=== PATIENT | female | born 1990 | race Caucasian/White ===

== ENCOUNTER → 2017-02-27 | Outpatient (CLI) | payer BC ==
[~2017-02-27] MED LIST: AMOXIL500 MG PO; DONNATAL1 CA1 PO; FLEXERIL10 MG PO; IBU600 MG PO; MOTRIN800 MG PO; NKHM PO; ZANTAC150 MG PO; ZYRTEC10 MG PO
== END | disposition home or self-care (01) ==
LOC: US 07:11
DX: N64.4 Mastodynia (principal)

== ENCOUNTER 2018-07-03 12:08 | Emergency (ER) | payer BC ==
[~2018-07-03] VITALS: Ht 170.1 cm; Wt 143.8 kg
[2018-07-03 13:07] LABS: BASO # 0.1 10*3/uL (0.0-0.1); BASO % 0.5 % (0.0-1.0); EOS # 0.1 10*3/uL (0.0-0.4); EOS % 0.5 % (1.0-4.0); HEMATOCRIT 41.6 % (37.0-47.0); HEMOGLOBIN 13.6 g/dl (12.0-16.0); LYMPH # 1.9 10*3/uL (1.3-4.4); LYMPH % 19.3 % (27.0-41.0); MEAN CELL VOLUME 86.7 fl (81.0-99.0); MEAN CORPUSCULAR HGB 28.3 pg (27.0-31.0); MEAN CORPUSCULAR HGB CONC 32.7 g/dl (33.0-37.0); MONO # 0.5 10*3/uL (0.1-1.0); MONO % 4.9 % (3.0-9.0); NEUT # 7.5 10*3/uL (2.3-7.9); NEUT % 74.5 % (47.0-73.0); PLATELET COUNT AUTOMATED 326 10*3/uL (130-400); RED CELL DISTRI WIDTH 13.2 % (0-14.5)
[2018-07-03 13:31] LABS: ALBUMIN 3.1 gm/dl (3.1-4.5); ALKALINE PHOSPHATASE 100 U/L (45-117); BUN 9 mg/dl (7-24); CHLORIDE 107 mmol/L (98-107); CREATININE 0.91 mg/dL (0.55-1.02); LIPASE 199 U/L (73-393); POTASSIUM 4.2 mmol/L (3.5-5.1); SGOT/AST 13 IU/L (3-35); SGPT/ALT 22 U/L (12-78); SODIUM 139 mmol/L (136-145); TOTAL PROTEIN 8.1 gm/dL (6.4-8.2)
[2018-07-03 13:32] LABS: BILIRUBIN NEGATIVE (NEGATIVE); BLOOD 3+ (NEGATIVE); CLARITY SL CLOUDY (CLEAR); COLOR YELLOW (YELLOW); GLUCOSE NEGATIVE (NEGATIVE); KETONE NEGATIVE (NEGATIVE); LEUKO ESTERASE 1+ (NEGATIVE); NITRITE NEGATIVE (NEGATIVE); SPECIFIC GRAVITY 1.015 (1.005-1.030); UROBILINOGEN 0.2 E.U./dl (0.2-1.0)
[2018-07-03 13:52] LABS: BACTERIA 3+; RBC 51-100 rbc/hpf (0-2); WBC 41-50 wbc/hpf (0-5)
[2018-07-03] MEDS ORDERED: ZANTAC 150150 MG PO (16:02)
[2018-07-03] MEDS ORDERED: SUNMARK OMEPRAZ20 M1 PO (16:02)
[2018-07-03] MEDS ORDERED: ZOFRAN4 MG PO (16:02)
[2018-07-03] MEDS ORDERED: CARAFATE1 G1 PO (16:02)
== END 2018-07-03 16:11 | disposition home or self-care (01) ==
LOC: ED 12:08
PROVIDERS: Nurse Practitioner Family
DX: R10.13 Epigastric pain (principal); M54.6 Pain in thoracic spine; R03.0 Elevated blood-pressure reading, without diagnosis of hypertension; R11.0 Nausea; Z79.2 Long term (current) use of antibiotics; Z79.899 Other long term (current) drug therapy

== ENCOUNTER 2019-01-15 19:20 | Emergency (ER) | payer BC ==
[~2019-01-15] VITALS: Ht 170.1 cm; Wt 140.6 kg
[~2019-01-15 19:20] MED LIST changes: +CARAFATE1 G1 PO; +SUNMARK OMEPRAZ20 M1 PO; +ZANTAC 150150 MG PO; +ZOFRAN4 MG PO
[2019-01-16 01:27] LABS: BASO % 0.1 % (0.0-1.0); EOS % 0.1 % (1.0-4.0); HEMATOCRIT 39.6 % (37.0-47.0); HEMOGLOBIN 12.6 g/dl (12.0-16.0); LYMPH # 1.8 10*3/uL (1.3-4.4); LYMPH % 11.6 % (27.0-41.0); MEAN CELL VOLUME 89.2 fl (81.0-99.0); MEAN CORPUSCULAR HGB 28.4 pg (27.0-31.0); MEAN CORPUSCULAR HGB CONC 31.8 g/dl (33.0-37.0); MEAN PLATELET VOLUME 9.9 fl (9.6-12.3); MONO # 0.8 10*3/uL (0.1-1.0); MONO % 5.1 % (3.0-9.0); NEUT # 12.5 10*3/uL (2.3-7.9); NEUT % 82.8 % (47.0-73.0); PLATELET COUNT AUTOMATED 282 10*3/uL (130-400); RED BLOOD COUNT 4.44 10*6/uL (4.10-5.10); RED CELL DISTRI WIDTH 13.9 % (0-14.5); WHITE BLOOD COUNT 15.1 10*3/uL (4.8-10.8)
[2019-01-16 01:42] LABS: ACT PARTIAL THROMBO TIME 22.2 SECONDS (20.0-32.1); INTERNATIONAL NORM RATIO 0.9 (2.0-3.5)
[2019-01-16 01:43] LABS: BUN 15 mg/dl (7-24); CHLORIDE 108 mmol/L (98-107); CREATININE 0.94 mg/dL (0.55-1.02); POTASSIUM 4.1 mmol/L (3.5-5.1); SODIUM 139 mmol/L (136-145)
== END 2019-01-16 02:28 | disposition short-term general hospital (02) ==
LOC: ED 19:20
PROVIDERS: Emergency Medicine Emergency Medical Services
DX: S82.852A Displaced trimalleolar fracture of left lower leg, initial encounter for closed fracture (principal); R79.1 Abnormal coagulation profile; W17.2XXA Fall into hole, initial encounter; Y93.89 Activity, other specified; Y92.89 Other specified places as the place of occurrence of the external cause; Y99.8 Other external cause status

== ENCOUNTER → 2019-11-14 | Outpatient (CLI) | payer BC | END | disposition home or self-care (01) | LOC: COVID19 08:19 | DX: U07.1 COVID-19 (principal) ==

== ENCOUNTER 2019-11-20 20:41 | Inpatient (IN) | payer BC ==
[~2019-11-20] VITALS: Ht 162.5 cm; Wt 148.1 kg
[2019-11-20 20:54] VITALS: BP 127/66
[2019-11-20 22:33] LABS: BASO % 0.1 % (0.0-1.0); HEMATOCRIT 40.3 % (37.0-47.0); LYMPH % 11.1 % (27.0-41.0); MEAN CELL VOLUME 82.1 fl (81.0-99.0); MEAN CORPUSCULAR HGB 26.5 pg (27.0-31.0); MEAN CORPUSCULAR HGB CONC 32.3 g/dl (33.0-37.0); MEAN PLATELET VOLUME 10.3 fl (9.6-12.3); MONO # 0.3 10*3/uL (0.1-1.0); MONO % 3.2 % (3.0-9.0); NEUT # 7.7 10*3/uL (2.3-7.9); NEUT % 85.2 % (47.0-73.0); PLATELET COUNT AUTOMATED 222 10*3/uL (130-400); RED BLOOD COUNT 4.91 10*6/uL (4.10-5.10)
[2019-11-20 22:39] VITALS: BP 110/64
[2019-11-20 22:49] LABS: ALBUMIN 2.9 gm/dl (3.1-4.5); ALKALINE PHOSPHATASE 77 U/L (45-117); BUN 6 mg/dl (7-24); CHLORIDE 101 mmol/L (98-107); POTASSIUM 3.5 mmol/L (3.5-5.1); SGOT/AST 38 IU/L (3-35); SGPT/ALT 36 U/L (12-78); SODIUM 133 mmol/L (136-145); TOTAL PROTEIN 7.9 gm/dL (6.4-8.2)
[2019-11-20 23:40] VITALS: BP 100/77
--- NOTE | 2019-11-20 23:40 | NUR ---
A 29, admitted to , under the services of GEE Jennings DO with a diagnosis of HYPOXIA, PNEUMONIA, COVID +. Chief complaint is TESTED + COVID 11/16/19. SOB THIS EVENING. Patient arrived via wheel chair from ER. Monitor applied. Initial assessment completed. Vital signs taken and recorded. GEE JENNINGS DO / DR LEE notified of admission to the unit. Orders received. See assessment for past medical history, medications and allergies. Patient and/or family oriented to unit. [facility] visitation policy reviewed. Clothing/patient valuable form completed. REBECA LINARES
--- NOTE | 2019-11-20 23:53 | NUR ---
CONSULT CALLED TO DR REZA'S ANSWERING SERVICE
[2019-11-21 00:06] LABS: LDH 443 U/L (84-246)
[2019-11-21 00:09] LABS: TROPONIN I < 0.015 ng/ml (<0.045)
[2019-11-21] MEDS ORDERED: PROPRANOLOL ER80 MG PO (00:56)
[2019-11-21 01:00] LABS: ARTERIAL BLOOD GAS PH 7.466 (7.35-7.45)
--- NOTE | 2019-11-21 01:15 | NUR ---
DR JACOBS CONTACTED REGARDING CONSULT. ABG'S AND PULSE OX REVIEWED
--- NOTE | 2019-11-21 04:00 | NUR ---
SLEEPING. NO ACUTE DISTRESS NOTED. O2 IN USE. CALL LIGHT WITHIN REACH
--- NOTE | 2019-11-21 06:00 | NUR ---
SLEPT SINCE ARRIVING TO FLOOR. NO ACUTE DISTRESS NOTED. RESPIRATIONS EASY. O2 IN USE. CALL LIGHT WITHIN REACH. NO VOICED COMPLAINTS
[2019-11-21 06:37] LABS: BASO % 0.1 % (0.0-1.0); HEMATOCRIT 36.7 % (37.0-47.0); LYMPH # 1.1 10*3/uL (1.3-4.4); LYMPH % 14.3 % (27.0-41.0); MEAN CELL VOLUME 82.8 fl (81.0-99.0); MEAN CORPUSCULAR HGB 26.9 pg (27.0-31.0); MEAN CORPUSCULAR HGB CONC 32.4 g/dl (33.0-37.0); MEAN PLATELET VOLUME 10.3 fl (9.6-12.3); MONO # 0.3 10*3/uL (0.1-1.0); MONO % 3.7 % (3.0-9.0); NEUT % 81.1 % (47.0-73.0); PLATELET COUNT AUTOMATED 188 10*3/uL (130-400); RED BLOOD COUNT 4.43 10*6/uL (4.10-5.10); RED CELL DISTRI WIDTH 14.1 % (0-14.5); WHITE BLOOD COUNT 7.4 10*3/uL (4.8-10.8)
[2019-11-21 07:06] LABS: ALBUMIN 2.5 gm/dl (3.1-4.5); ALKALINE PHOSPHATASE 66 U/L (45-117); BUN 7 mg/dl (7-24); CHLORIDE 102 mmol/L (98-107); CPK 40 U/L (26-192); CREATININE 0.93 mg/dL (0.55-1.02); POTASSIUM 3.4 mmol/L (3.5-5.1); SGOT/AST 32 IU/L (3-35); SGPT/ALT 33 U/L (12-78); SODIUM 134 mmol/L (136-145); TOTAL PROTEIN 7.2 gm/dL (6.4-8.2)
--- NOTE | 2019-11-21 07:30 | NUR ---
PT RESTING IN BED. VOICES NO CONCERNS AT THIS TIME. RESPS EASY AND NON LABORED. NO S/S OF DISTRESS NOTED. OXYGEN INTACT. VSS. WHITE BOARD UPDATED. POC DISCUSSED W PT. DENIES SOB. TRACE EDEMA. OBESE.
[2019-11-21 08:00] VITALS: BP 122/68
[2019-11-21 10:38] LABS: ABG BASE EXCESS 1.5 mmol/L (-2.0-2.0); ARTERIAL BLOOD GAS PH 7.46 (7.35-7.45)
--- NOTE | 2019-11-21 10:50 | NUR ---
PER DR JACOBS TITRATE OXYGEN TO MAINTAIN SPO2 >92%
--- NOTE | 2019-11-21 10:57 | NUR ---
SPOKE WITH DR JACOBS ON PHONE AND POST ABGS HE WANTS TO INCREASE THE 5L. RN AWARE AND WILL INCREASE TO 8L WHEN SHE GOES INTO THE ROOM.
[2019-11-21 12:00] VITALS: BP 124/76
[2019-11-21 16:00] VITALS: BP 107/68
--- NOTE | 2019-11-21 16:13 | NUR ---
INTO TO CHECK ON PT. SPO2 IN THE 80'S ON 5L HFNC. TITRATED TO 10L HFNC. SPO2 93%. RESPIRATORY PLACED CALL TO DR JACOBS. PT DIAPHORETIC AT THIS TIME.
--- NOTE | 2019-11-21 16:20 | NUR ---
SPOKE WITH REYNALDO ON THE PHONE AND HE WOULD LIKE THE PT TO BE MOVED, AND ALSO PLACED ON BIPAP. AWAITING SETTINGS AT THIS TIME UNTIL PT GETS PLACED INTO THE NEW ROOM. RN WAS ALSO NOTIFIED OF THE CHANGES.
--- NOTE | 2019-11-21 17:00 | NUR ---
PT RESTING IN PRONED POSITION. RESP EASY. PT ON 10 LITERS HIGHFLO NASAL CANNULA. EDUCATED PT ON BED TRANSFER AND UPCOMING PLAN OF CARE. PT VERBALIZED UNDERSTANDING.
--- NOTE | 2019-11-21 18:19 | NUR ---
PT EATING DINNER AND TALKING ON HER PHONE. PT DENIES COMPLAINTS AT THIS TIME.
--- NOTE | 2019-11-21 18:30 | NUR ---
ASKED RESP. THERAPY TO DRAW ABG'S NOW INSTEAD OF WAITING UNTIL ROOM CHANGE. THEY STATED THEY WILL BE UP SHORTLY.
--- NOTE | 2019-11-21 18:58 | NUR ---
MAURI MORSE DRAWN BY RESP. THERAPY.
[2019-11-21 19:09] LABS: ABG BASE EXCESS -1.1 mmol/L (-2.0-2.0); ARTERIAL BLOOD GAS PH 7.411 (7.35-7.45)
[2019-11-21 20:00] VITALS: BP 117/85
--- NOTE | 2019-11-21 20:01 | NUR ---
DR ERZA CALLED AND NOTIFIED ON UPDATED STATUS, ORDERS RECEIVED. PATIENT CURRENTLY ON BIPAP AND STABLE.
--- NOTE | 2019-11-21 20:30 | NUR ---
Pt placed on BiPap 14/10 and FiO2 50%. Alarms on and audible. SpO2 94% ABG in 2 hours.
--- NOTE | 2019-11-21 23:00 | NUR ---
Pt still resting on BiPap and doing great. ABG was sent and encouraged pt to wear the BiPap all night and to self-prone in the bed.
[2019-11-21 23:22] LABS: ABG BASE EXCESS -0.5 mmol/L (-2.0-2.0); ARTERIAL BLOOD GAS PH 7.411 (7.35-7.45)
[2019-11-22] VITALS: BP 98/48
[2019-11-22 04:00] VITALS: BP 122/71
--- NOTE | 2019-11-22 04:33 | NUR ---
PAIENT HAS SLEPT WITHOUT ANY ISSUES PATIENT HAS LEFT BIPAP ON ALL NIGHT OTHER THAN FOR A DRINK. PATIENT IS 93-98% ON BIPAP PATIENT HAS SLEPT ON HER RIGHT SIDE ALL NIGHT.
[2019-11-22 06:34] LABS: HEMATOCRIT 39.9 % (37.0-47.0); MEAN CELL VOLUME 84.4 fl (81.0-99.0); MEAN CORPUSCULAR HGB 26.8 pg (27.0-31.0); MEAN CORPUSCULAR HGB CONC 31.8 g/dl (33.0-37.0); MEAN PLATELET VOLUME 10.7 fl (9.6-12.3); PLATELET COUNT AUTOMATED 240 10*3/uL (130-400); RED BLOOD COUNT 4.73 10*6/uL (4.10-5.10); RED CELL DISTRI WIDTH 14.2 % (0-14.5); WHITE BLOOD COUNT 2.4 10*3/uL (4.8-10.8)
[2019-11-22 06:43] LABS: ALBUMIN 2.7 gm/dl (3.1-4.5); BUN 11 mg/dl (7-24); CHLORIDE 106 mmol/L (98-107); CREATININE 0.96 mg/dL (0.55-1.02); SGOT/AST 47 IU/L (3-35); SODIUM 138 mmol/L (136-145); TOTAL PROTEIN 7.7 gm/dL (6.4-8.2)
[2019-11-22 06:50] LABS: BASOPHILS 1 % (0-1); PLATELET SUFFICIENCY NORMAL (NORMAL); POLYCHROMASIA SLIGHT; TOTAL CELLS COUNTED 100 #CELLS
[2019-11-22 06:54] LABS: ALKALINE PHOSPHATASE 74 U/L (45-117); CPK 30 U/L (26-192); LDH 445 U/L (84-246); SGPT/ALT 50 U/L (12-78)
[2019-11-22 07:10] LABS: POTASSIUM 4.5 mmol/L (3.5-5.1)
[2019-11-22 08:00] VITALS: BP 134/66
[2019-11-22 08:47] LABS: ABG BASE EXCESS 0.2 mmol/L (-2.0-2.0); ARTERIAL BLOOD GAS PH 7.422 (7.35-7.45)
--- NOTE | 2019-11-22 08:48 | NUR ---
0815 Bi-Pap off for breakfast ordering.
--- NOTE | 2019-11-22 08:48 | NUR ---
RT here for ABG
--- NOTE | 2019-11-22 09:00 | NUR ---
case management spoke to patient via phone, she states she will return home when discharged and denies any home needs at this time
[2019-11-22 12:00] VITALS: BP 132/64; BP 135/73
--- NOTE | 2019-11-22 12:14 | NUR ---
Geographic Information Systems Manager in to talk to patient. Patient states lives at home with . There are no steps in the home. Physician: arnaldo Pharmacy: [facility]: none Patient's level of ADLs: INDEPENDENT Patient has working utilities: all working DME: none Follow-up physician's appointment after d/c: will be made by hospitalist nurse director upon discharge Does patient want to access PORTAL?: no Discharge plan discussed with patient, she lives at home with , she is independent in adls and ambulation, works, drives, she states she will return home when discharged and denies any home needs. FRANCHESCA CONCEPCION
--- NOTE | 2019-11-22 12:33 | NUR ---
Aurelio Hendrickson and Xavier in to evaulate. Orders recieved. A-line placed to RR per Albert Romero CRNA w/o difficulty.
[2019-11-22 12:52] LABS: ABG BASE EXCESS 0.4 mmol/L (-2.0-2.0); ARTERIAL BLOOD GAS PH 7.421 (7.35-7.45)
[2019-11-22 16:00] VITALS: BP 120/61; BP 124/62
[2019-11-22 17:15] LABS: ABG BASE EXCESS 0.7 mmol/L (-2.0-2.0); ARTERIAL BLOOD GAS PH 7.435 (7.35-7.45)
[2019-11-22 20:00] VITALS: BP 149/76
--- NOTE | 2019-11-22 21:13 | NUR ---
RN IN TO SEE PATIENT, PATIENT HAS CALLED OUT, WHEN RN ENTERED ROOM, PATIENT HAS BIPAP OFF AND NO OXYGEN ON, PULSE OXIMETER WAS ALSO OFF. OXYGEN WAS REAPPLIED AND PULSE OXIMETER WWS REAPPLIED. PULSE OX READING WAS 88%. PATIENT VISIBALLY UPSET AND STATES "IM NOT GOING TO SIT HERE FOR TEN MINUTES WITH SNOT ALL OVER MY FACE" RN EXPLAINED TO PATIENT THAT I WAS IN ANOTHER ISOLATION ROOM AND THAT I CAME INTO HER ROOM SOON POSSIBLE. RN ALSO EXPLAINED TO PATIENT TO NOT REMOVE BIPAP UNLESS RN OR RESPIRATORY IS IN WITH HER. PATIENT VERBALIZED UNDERSTANDING. PATIENT WAS ASSISTED TO THE BATHROOM AT THIS TIME WELL. PRIOR TO EXITING THE PATIENT ROOM, BIPAP WAS AGAIN PLACED ONTO PATIENT, SHE APPEARS TO BE TOLERATING WELL. AND DENIES ANY NEEDS AT THIS TIME
[2019-11-22 21:58] LABS: ABG BASE EXCESS -0.6 mmol/L (-2.0-2.0); ARTERIAL BLOOD GAS PH 7.423 (7.35-7.45)
--- NOTE | 2019-11-22 22:07 | NUR ---
PATIENT MOTHERS CALLED AND WAS UPDATED ON PATIENT CONDITION
[2019-11-22 22:41] LABS: ABG BASE EXCESS 0.4 mmol/L (-2.0-2.0); ARTERIAL BLOOD GAS PH 7.459 (7.35-7.45)
--- NOTE | 2019-11-22 22:53 | NUR ---
ABG RESULTS CALLED TO DR JACOBS, NO CHANGES TO BIPAP AT THIS TIME.
[2019-11-23] VITALS: BP 125/63
[2019-11-23 04:00] VITALS: BP 128/84
--- NOTE | 2019-11-23 04:55 | NUR ---
AM LABS DRAWN AT THIS TIME. PATIENT TOLERATED WELL. CONTINUES TO WEAR BIPAP, IS TOLERATING BIPAP WELL.
[2019-11-23 05:29] LABS: ALBUMIN 2.6 gm/dl (3.1-4.5); ALKALINE PHOSPHATASE 64 U/L (45-117); BUN 15 mg/dl (7-24); CHLORIDE 108 mmol/L (98-107); CREATININE 0.77 mg/dL (0.55-1.02); LDH 328 U/L (84-246); POTASSIUM 4.1 mmol/L (3.5-5.1); SGOT/AST 36 IU/L (3-35); SGPT/ALT 50 U/L (12-78); SODIUM 141 mmol/L (136-145); TOTAL PROTEIN 7.1 gm/dL (6.4-8.2)
[2019-11-23 05:35] LABS: CPK 16 U/L (26-192)
[2019-11-23 05:44] LABS: HEMATOCRIT 38.1 % (37.0-47.0); MEAN CELL VOLUME 83.6 fl (81.0-99.0); MEAN CORPUSCULAR HGB 26.8 pg (27.0-31.0); MEAN PLATELET VOLUME 10.6 fl (9.6-12.3); PLATELET COUNT AUTOMATED 300 10*3/uL (130-400); RED BLOOD COUNT 4.56 10*6/uL (4.10-5.10); RED CELL DISTRI WIDTH 14.2 % (0-14.5); WHITE BLOOD COUNT 5.2 10*3/uL (4.8-10.8)
[2019-11-23 06:51] LABS: ATYPICAL LYMPHS 1 % (0-0); OVALOCYTES FEW; POLYCHROMASIA SLIGHT; TOTAL CELLS COUNTED 100 #CELLS
[2019-11-23 06:52] LABS: PLATELET SUFFICIENCY NORMAL (NORMAL)
--- NOTE | 2019-11-23 06:58 | NUR ---
PATIENT REMAINS ASLEEP, WEARING BIPAP AND TOLERATING WELL. HAS WORE THE BIPAP FOR MOST OF THE NIGHT
[2019-11-23 07:41] LABS: ABG BASE EXCESS 1.5 mmol/L (-2.0-2.0); ARTERIAL BLOOD GAS PH 7.397 (7.35-7.45)
[2019-11-23 08:00] VITALS: BP 132/74
--- NOTE | 2019-11-23 08:30 | NUR ---
PT RESTING. VSS. PT DENIES COMPLAINTS. NO ACUTE DISTRESS NOTED.
--- NOTE | 2019-11-23 10:00 | NUR ---
DR JACOBS IN TO SEE PT. UPDATE IM ON PT'S CONDITION.
--- NOTE | 2019-11-23 10:40 | NUR ---
PATIENT PLACED ON BI-PAP 02/05, 45%. PULSE OX 99%.
[2019-11-23 10:42] LABS: ABG BASE EXCESS 1.4 mmol/L (-2.0-2.0); ARTERIAL BLOOD GAS PH 7.429 (7.35-7.45)
[2019-11-23 11:52] VITALS: BP 137/80
--- NOTE | 2019-11-23 12:36 | NUR ---
DR WATKINS IN TO SEE PT.
[2019-11-23 16:00] VITALS: BP 126/68
--- NOTE | 2019-11-23 18:00 | NUR ---
PT C/O GI UPSET. SHE STATED SHE TAKES "OTC PRILOSEC SOMETIMES AT HOME." SHE STATED THAT ONE OF THE DOCTORS WERE IN [place] AND STATED THEY WOULD ORDER IT FOR HER. I NOTIFIED DR BARNEY AND SHE STATED SHE WOULD PLACE THE ORDER.
[2019-11-23 20:00] VITALS: BP 141/81
[2019-11-24] VITALS: BP 127/72
[2019-11-24 04:01] VITALS: BP 114/37
--- NOTE | 2019-11-24 06:46 | NUR ---
PATIENT HAS SLEPT ALL NIGHT AND LEFT BIPAP ON EXCEPT FOR ONE TIME TO GET A DRINK AND TAKE MEDS AND THEN SHE WENT RIGHT BACK ON
[2019-11-24 07:17] LABS: BASO % 0.2 % (0.0-1.0); HEMATOCRIT 40.3 % (37.0-47.0); LYMPH # 1.1 10*3/uL (1.3-4.4); LYMPH % 21.6 % (27.0-41.0); MEAN CELL VOLUME 85.2 fl (81.0-99.0); MEAN CORPUSCULAR HGB 26.8 pg (27.0-31.0); MEAN CORPUSCULAR HGB CONC 31.5 g/dl (33.0-37.0); MEAN PLATELET VOLUME 10.1 fl (9.6-12.3); MONO # 0.3 10*3/uL (0.1-1.0); MONO % 5.9 % (3.0-9.0); NEUT # 3.6 10*3/uL (2.3-7.9); NEUT % 71.5 % (47.0-73.0); PLATELET COUNT AUTOMATED 318 10*3/uL (130-400); RED BLOOD COUNT 4.73 10*6/uL (4.10-5.10); RED CELL DISTRI WIDTH 13.9 % (0-14.5); WHITE BLOOD COUNT 5.1 10*3/uL (4.8-10.8)
[2019-11-24 07:28] LABS: BUN 16 mg/dl (7-24); CHLORIDE 106 mmol/L (98-107); CREATININE 0.82 mg/dL (0.55-1.02); POTASSIUM 3.8 mmol/L (3.5-5.1); SODIUM 141 mmol/L (136-145)
[2019-11-24 08:00] VITALS: BP 123/74
[2019-11-24 08:21] LABS: ABG BASE EXCESS 2.4 mmol/L (-2.0-2.0); ARTERIAL BLOOD GAS PH 7.425 (7.35-7.45)
--- NOTE | 2019-11-24 09:00 | NUR ---
case management talked with patient, she stated she would return home when discharged and denies any home needs, case management will follow
[2019-11-24 11:28] LABS: ARTERIAL BLOOD GAS PH 7.446 (7.35-7.45)
[2019-11-24 12:00] VITALS: BP 108/54
[2019-11-24 14:41] LABS: ABG BASE EXCESS 1.8 mmol/L (-2.0-2.0); ARTERIAL BLOOD GAS PH 7.424 (7.35-7.45)
[2019-11-24 16:00] VITALS: BP 117/62
--- NOTE | 2019-11-24 18:04 | NUR ---
PATIENT BACK ON BIPAP AFTER EATING DINNER ON HFNC8L & TALKING TO MOM..PATIENT RETURNED TO ALMOST FULL PRONE.
[2019-11-24 20:00] VITALS: BP 118/64
[2019-11-25] VITALS: BP 123/60; BP 130/68
[2019-11-25 04:00] VITALS: BP 123/77
--- NOTE | 2019-11-25 04:00 | NUR ---
PATIENT HAS SLEPT THE MAJORITY OF THE NIGHT WITH THE BIPAP ON WITH THE EXCEPTUION TO DRINK ONCE, PATIENT ALSO HAS BEEN ATTEMPTING TO LAY PRONE. PATIENT HAS TOLERATED THESE WELL.
--- NOTE | 2019-11-25 05:56 | NUR ---
am labs drawn, patient taken off bipap for a short minute to allow her to take po medications. immediately placed back on. denies other needs at this time. rn will continue to monitor
[2019-11-25 06:12] LABS: HEP B CORE AB, IGM Negative (Negative); HEPATITIS B SURFACE AG Negative (Negative); HEPATITIS C VIRUS ANTIBODY <0.1 s/co (0.0-0.9)
[2019-11-25 06:16] LABS: BASO % 0.1 % (0.0-1.0); EOS % 0.1 % (1.0-4.0); HEMATOCRIT 39.8 % (37.0-47.0); LYMPH # 1.5 10*3/uL (1.3-4.4); LYMPH % 19.1 % (27.0-41.0); MEAN CELL VOLUME 83.6 fl (81.0-99.0); MEAN CORPUSCULAR HGB 26.7 pg (27.0-31.0); MEAN CORPUSCULAR HGB CONC 31.9 g/dl (33.0-37.0); MEAN PLATELET VOLUME 10.1 fl (9.6-12.3); MONO # 0.5 10*3/uL (0.1-1.0); NEUT # 5.7 10*3/uL (2.3-7.9); NEUT % 73.7 % (47.0-73.0); PLATELET COUNT AUTOMATED 339 10*3/uL (130-400); RED BLOOD COUNT 4.76 10*6/uL (4.10-5.10); RED CELL DISTRI WIDTH 13.6 % (0-14.5); WHITE BLOOD COUNT 7.7 10*3/uL (4.8-10.8)
[2019-11-25 06:37] LABS: ALBUMIN 2.8 gm/dl (3.1-4.5); ALKALINE PHOSPHATASE 62 U/L (45-117); BUN 15 mg/dl (7-24); CHLORIDE 108 mmol/L (98-107); CREATININE 0.82 mg/dL (0.55-1.02); POTASSIUM 4.4 mmol/L (3.5-5.1); SGOT/AST 25 IU/L (3-35); SGPT/ALT 43 U/L (12-78); SODIUM 142 mmol/L (136-145)
[2019-11-25 08:00] VITALS: BP 117/66
[2019-11-25 08:01] LABS: ABG BASE EXCESS 3.9 mmol/L (-2.0-2.0); ARTERIAL BLOOD GAS PH 7.452 (7.35-7.45)
--- NOTE | 2019-11-25 10:35 | NUR ---
PATIENT UPSET AFTER BEING TOLD THAT HER CXR WAS SLIGHTLY WORSE & THAT HER ABG RESULTS WERE SLIGHTLY WORSE & THAT SHE MUST WEAR HER BIPAP EXCEPT WHENEATING (MUST KEEP TIME SHORT) AND THAT IT IS VERY IMPORTANT TO PRONE. REASONS/EXPLANATIONS GIVEN BY NURSE AND DR JACOBS. DR ALDRIDGE WAS ALSO GOING TO TALK WITH HER. WAS ON FACETIME LISTENING TO THE CONVERSATION WITH DR JACOBS & NURSE. PATIENT BACK ON BIPAP 16/ 35%. PULSE OX WHEN DR JACOBS WALKED INTO THE ROOM WITH PATIENT ON HER STOMACH WAS 99% ON HFNC 9L BUT WHEN SHE SAT UP AND STARTED TALKING IT DROPPED TO 90%. DR JACOBS EXPLAINED THIS TO HER WELL.
--- NOTE | 2019-11-25 11:02 | NUR ---
patient will return home when discharged, patient not stable for discharge at this time, case management will follow
--- NOTE | 2019-11-25 11:41 | NUR ---
PATIENT REMAINS ON BIPAP LAYING ON HER STOMACH
--- NOTE | 2019-11-25 11:50 | NUR ---
DR REZA UPDATED ON PT CONDITION, OXYGEN DEMANDS
[2019-11-25 12:00] VITALS: BP 109/51
[2019-11-25 16:00] VITALS: BP 113/54
[2019-11-25 20:00] VITALS: BP 112/54
--- NOTE | 2019-11-25 21:05 | NUR ---
PATIENT TAKEN OFF BIPAP TO EAT A SNACK AND TO MAKE PHONE CALL PER HER REQUEST. RN INFORMED PATIENT THAT THIS BREAK FROM THE BIPAP HAS TO BE BRIEF, SHE VERBALIZED UNDERSTANDING. UPON APPLYING O2, PATIENT STATES THAT NASAL CANNULA DOESNT SEEM TO BE BLOWING OUT LIKE IT HAD BEEN. RN CHECKED AND FOUND HUMIDIFER WAS ALMOST EMPTY. ADDITIONAL WATER WAS ADDED AND IMMEDIATELY OXYGEN BEGAN FLOWING THROUGH THE TUBE IT WAS SUPPOSED TO. PATIENT O2 SATURATION ALSO IMPROVED FROM 91% TO 96% WHILE SITTING UP. PATIENT STATES OXYGEN HAD BEEN LIKE THAT FOR MOST OF THE DAY. RESPIRATORY TO BE CALLED WHEN PATIENT IS READY FOR THE BIPAP TO BE REAPPLIED.
[2019-11-26] VITALS: BP 116/55
--- NOTE | 2019-11-26 02:05 | NUR ---
PATIENT CONTINUES TO LAY PRONED, TOLERATING WELL HEARTRATE 47 PER TEST PREPARER. NO SIGNS OR SYMPTOMS OF DISTRESS. WEARING THE BIPAP PER DR DIAZ. PULSE OXIMETRY REMAINS WITHIN NORMAL LIMITS 94% AND ABOVE. REMAINS IN VIEW OF RN ON CAMERA RN WILL CONTINUE TO MONITOR
--- NOTE | 2019-11-26 02:53 | NUR ---
PT REQUESTED TO BE TAKEN OFF BIPAP FOR BREIF INTERMISSION. PT PLACED ON 9LHF. SATS MANTAINING 95-97%. NO RES DISTRESS OR SOB. WILL CONTINUE TO MONITOR.
[2019-11-26 04:00] VITALS: BP 124/64
[2019-11-26 05:44] LABS: ALBUMIN 2.9 gm/dl (3.1-4.5); ALKALINE PHOSPHATASE 62 U/L (45-117); BUN 14 mg/dl (7-24); CHLORIDE 107 mmol/L (98-107); CREATININE 0.75 mg/dL (0.55-1.02); POTASSIUM 4.2 mmol/L (3.5-5.1); SGOT/AST 23 IU/L (3-35); SGPT/ALT 44 U/L (12-78); SODIUM 140 mmol/L (136-145)
[2019-11-26 06:00] LABS: BASO % 0.2 % (0.0-1.0); EOS % 0.1 % (1.0-4.0); HEMATOCRIT 39.9 % (37.0-47.0); LYMPH # 1.5 10*3/uL (1.3-4.4); LYMPH % 13.2 % (27.0-41.0); MEAN CELL VOLUME 82.6 fl (81.0-99.0); MEAN CORPUSCULAR HGB 26.7 pg (27.0-31.0); MEAN CORPUSCULAR HGB CONC 32.3 g/dl (33.0-37.0); MEAN PLATELET VOLUME 9.9 fl (9.6-12.3); MONO # 0.6 10*3/uL (0.1-1.0); NEUT # 9.3 10*3/uL (2.3-7.9); NEUT % 80.5 % (47.0-73.0); PLATELET COUNT AUTOMATED 377 10*3/uL (130-400); RED BLOOD COUNT 4.83 10*6/uL (4.10-5.10); RED CELL DISTRI WIDTH 13.5 % (0-14.5); WHITE BLOOD COUNT 11.6 10*3/uL (4.8-10.8)
[2019-11-26 08:00] VITALS: BP 126/70
[2019-11-26 08:29] LABS: ABG BASE EXCESS 1.2 mmol/L (-2.0-2.0); ARTERIAL BLOOD GAS PH 7.434 (7.35-7.45)
--- NOTE | 2019-11-26 10:30 | NUR ---
POX 99% ON 8L HIGH FLOW. OXYGEN TITRATED DOWN TO 6L HIGH FLOW AT THIS TIME.
[2019-11-26 12:00] VITALS: BP 104/55
[2019-11-26 12:27] LABS: ARTERIAL BLOOD GAS PH 7.434 (7.35-7.45)
--- NOTE | 2019-11-26 13:43 | NUR ---
PER DR. JACOBS, 2 HOURS ON THEN 2 HOURS OFF BIPAP, CONTINUOUS AT H.S. HFNC DECREASED TO 5L BY DR. JACOBS.
--- NOTE | 2019-11-26 13:54 | NUR ---
PT RESTING IN BED IN PRONE POSITION WITH BIPAP ON AT THIS TIME. POX 98% ON BIPAP WITH 35% O2.
[2019-11-26 16:00] VITALS: BP 103/51
--- NOTE | 2019-11-26 16:15 | NUR ---
PT TAKEN OFF BIPAP. PT ON HFNC AT 5LM RN AWARE
[2019-11-26 20:00] VITALS: BP 109/56
[2019-11-27] VITALS: BP 132/77
--- NOTE | 2019-11-27 00:12 | NUR ---
C/O LOWER BACK DISCOMFORT AND UNABLE TO GET COMFORTABLE TO SLEEP. REQUESTING TYLENOL. MEDICATED PER PRN ORDER. WILL CONTINUE TO MONITOR.
[2019-11-27 04:00] VITALS: BP 127/60
--- NOTE | 2019-11-27 06:35 | NUR ---
DR. MART CALLED FOR PATIENT REQUEST OF HEARTBURN MEDICATION. TUMS ORDERED.
[2019-11-27 06:37] LABS: BASO % 0.1 % (0.0-1.0); EOS % 0.3 % (1.0-4.0); HEMATOCRIT 41.1 % (37.0-47.0); LYMPH # 1.7 10*3/uL (1.3-4.4); LYMPH % 12.1 % (27.0-41.0); MEAN CELL VOLUME 81.5 fl (81.0-99.0); MEAN CORPUSCULAR HGB 26.8 pg (27.0-31.0); MEAN CORPUSCULAR HGB CONC 32.8 g/dl (33.0-37.0); MEAN PLATELET VOLUME 9.8 fl (9.6-12.3); MONO # 0.7 10*3/uL (0.1-1.0); MONO % 4.7 % (3.0-9.0); NEUT # 11.7 10*3/uL (2.3-7.9); NEUT % 81.3 % (47.0-73.0); PLATELET COUNT AUTOMATED 386 10*3/uL (130-400); RED BLOOD COUNT 5.04 10*6/uL (4.10-5.10); RED CELL DISTRI WIDTH 13.7 % (0-14.5); WHITE BLOOD COUNT 14.4 10*3/uL (4.8-10.8)
[2019-11-27 06:37] LABS: ABG BASE EXCESS 1.9 mmol/L (-2.0-2.0); ARTERIAL BLOOD GAS PH 7.434 (7.35-7.45)
[2019-11-27 07:03] LABS: ALBUMIN 3.1 gm/dl (3.1-4.5); ALKALINE PHOSPHATASE 69 U/L (45-117); BUN 17 mg/dl (7-24); CHLORIDE 105 mmol/L (98-107); CREATININE 0.79 mg/dL (0.55-1.02); SGOT/AST 15 IU/L (3-35); SGPT/ALT 41 U/L (12-78); SODIUM 139 mmol/L (136-145)
[2019-11-27 08:00] VITALS: BP 123/63
--- NOTE | 2019-11-27 08:05 | NUR ---
PATIENT TAKEN OFF OF BI-PAP, PLACED ON 5 L/M HIGH FLOW. PULSE OX 97%.
--- NOTE | 2019-11-27 09:40 | NUR ---
AFTER AM ASSESSMENT COMPLETED PATIENT OFF BIPAP AND PLACED ON HFNC5L TO EAT. AFTER EATING ARTLINE DRESSING, TUBING, PRESSURE BAG CHANGED..SITE ASYMPTOMATIC..PER PT SHE FEELS BETTER AND WANTS TO GO HOME. DISCUSSED NOT QUITE READY.. DISCUSSED LABS THIS AM BUT THAT SHE IS IMPROVING. REF LUCI/SCD
--- NOTE | 2019-11-27 11:19 | NUR ---
PATIENT ASSISTED TO RECLINER BY RESP THERAPY & BIPAP BEING PLACED ON PATIENT. HER HEART RATE JUMPED FROM 80 TO 160 WITH STANDING BACK DOWN TO 97 AFTER SITTING
--- NOTE | 2019-11-27 11:25 | NUR ---
PATIENT PLACED ON BI-PAP 02/05, 35%. PULSE OX 96%.
[2019-11-27 16:00] VITALS: BP 123/73
[2019-11-27 16:56] LABS: ABG BASE EXCESS 1.3 mmol/L (-2.0-2.0); ARTERIAL BLOOD GAS PH 7.439 (7.35-7.45)
--- NOTE | 2019-11-27 19:09 | NUR ---
PATIENT SITTING UP IN RECLINER - RESP THERAPY HERE DRAWING ABG ON BIPAP AFTER FIO2 DECREASED TO 30%
[2019-11-27 19:22] LABS: ABG BASE EXCESS 3.2 mmol/L (-2.0-2.0); ARTERIAL BLOOD GAS PH 7.443 (7.35-7.45)
[2019-11-27 20:00] VITALS: BP 123/88
--- NOTE | 2019-11-27 22:48 | NUR ---
NORCO GIVEN FOR GENERALIZED PAIN & ANXIETY. PT TEARFUL
[2019-11-28] VITALS: BP 128/73
[2019-11-28 04:00] VITALS: BP 126/71
[2019-11-28 05:24] LABS: ALBUMIN 3.2 gm/dl (3.1-4.5); ALKALINE PHOSPHATASE 72 U/L (45-117); BUN 20 mg/dl (7-24); CHLORIDE 105 mmol/L (98-107); CREATININE 0.81 mg/dL (0.55-1.02); POTASSIUM 3.9 mmol/L (3.5-5.1); SGOT/AST 18 IU/L (3-35); SGPT/ALT 38 U/L (12-78); SODIUM 139 mmol/L (136-145); TOTAL PROTEIN 7.1 gm/dL (6.4-8.2)
[2019-11-28 06:24] LABS: BASO % 0.1 % (0.0-1.0); EOS # 0.1 10*3/uL (0.0-0.4); EOS % 0.3 % (1.0-4.0); HEMATOCRIT 42.7 % (37.0-47.0); LYMPH # 2.3 10*3/uL (1.3-4.4); LYMPH % 14.7 % (27.0-41.0); MEAN CELL VOLUME 81.8 fl (81.0-99.0); MEAN CORPUSCULAR HGB 26.6 pg (27.0-31.0); MEAN CORPUSCULAR HGB CONC 32.6 g/dl (33.0-37.0); MEAN PLATELET VOLUME 10.3 fl (9.6-12.3); MONO # 0.7 10*3/uL (0.1-1.0); MONO % 4.5 % (3.0-9.0); NEUT # 12.3 10*3/uL (2.3-7.9); NEUT % 79.4 % (47.0-73.0); PLATELET COUNT AUTOMATED 395 10*3/uL (130-400); RED BLOOD COUNT 5.22 10*6/uL (4.10-5.10); WHITE BLOOD COUNT 15.5 10*3/uL (4.8-10.8)
[2019-11-28 08:00] VITALS: BP 123/64
--- NOTE | 2019-11-28 09:00 | NUR ---
case management spoke to patient, she will return home when discharged, no other needs at this time
[2019-11-28 09:29] LABS: ABG BASE EXCESS 1.6 mmol/L (-2.0-2.0); ARTERIAL BLOOD GAS PH 7.437 (7.35-7.45)
[2019-11-28 11:52] VITALS: BP 101/57; BP 127/59
[2019-11-28 11:57] LABS: ABG BASE EXCESS 2.8 mmol/L (-2.0-2.0); ARTERIAL BLOOD GAS PH 7.451 (7.35-7.45)
--- NOTE | 2019-11-28 12:10 | NUR ---
case management received a message to check on cost of lovenox injections for 10 weeks, contacted [facility], spoke to Jaylan, pharmacist, patient will have a $10 copay for one month supply, hospitalist nurse director notified
--- NOTE | 2019-11-28 15:15 | NUR ---
RT ARTLINE REMOVED WITHOUT DIFFICULTY..ORESSURE HELD FOR 10 MINUTES BEFORE BLEEDING STOPPED. PRESSURE DRESSING APPLIED AND PATIENT INSTRUCTED TO TELL STAFF IF ANY NUMBNESS FOR BEING TOO TIGHT OR IT STARTS TO BLEED THROUGH...AWAITING DISCHARGE ORDER...
[2019-11-28] MEDS ORDERED: ENOXAPARIN150 MG/1 M SC ×2 (15:25→15:56)
--- NOTE | 2019-11-28 15:28 | NUR ---
12:15 PT ASSESSED FOR HOME O2. PT'S O2 WAS DECREASED TO RA BY RN AT 10:30. PRIOR TO CHANGE, SPO2 100% ON 3 L NC. 11:30 ABG DRAWN ON RA. SPO2 ON RA REMAIND AT 97% ON RA. PT NOW ASSESSED FOR O2: PT AMBULATED IN HER ROOM FOR APPROX 2-3 MINS ON RA. SPO2 94% ON RA WHILE AMBULATING. PT DOES NOT QUALIFY FOR HOME O2. RN AWARE.
--- NOTE | 2019-11-28 16:12 | NUR ---
Discharge instructions reviewed with patient/family. Patient receptive and verbalizes understanding. Follow-up care arranged. Written instructions given to patient/family. 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 ART LINE & HEPLOCK REMOVED BY KENTRELL JENKINS. DIRECTOR PRODUCT REMOVED. PT AWARE THAT SHE NEEDS TO SELF ISOLATE AND RETURN TO 'S OFFICE FOR REPEAT TEST. TAKEN OFF FLOOR VIA WHEELCHAIR, PICKED UP IN ER. ARTIE FENG
[2019-11-28 20:08] LABS: TB1 Ag VALUE 0.05 IU/mL (.)
== END 2019-11-28 16:14 | disposition home or self-care (01) | DRG 177 ==
LOC: ED 20:41 → EDHOLD 22:54 → 4E 22:54
PROVIDERS: Emergency Medicine; Hospitalist; Internal Medicine Critical Care Medicine; Student in an Organized Health Care Education/Training Program; ADMIT Internal Medicine
PROC: 4A133J1 Monitoring of Arterial Pulse, Peripheral, Percutaneous Approach (ICD-10-PCS; principal; 2019-11-22)
PROC: 4A133B1 Monitoring of Arterial Pressure, Peripheral, Percutaneous Approach (ICD-10-PCS; principal; 2019-11-22)
PROC: 5A09357 Assistance with Respiratory Ventilation, Less than 24 Consecutive Hours, Continuous Positive Airway Pressure (ICD-10-PCS; principal; 2019-11-22)
PROC: 03HY32Z Insertion of Monitoring Device into Upper Artery, Percutaneous Approach (ICD-10-PCS; principal; 2019-11-22)
PROC: 5A09357 Assistance with Respiratory Ventilation, Less than 24 Consecutive Hours, Continuous Positive Airway Pressure (ICD-10-PCS; 2019-11-23)
PROC: 5A09357 Assistance with Respiratory Ventilation, Less than 24 Consecutive Hours, Continuous Positive Airway Pressure (ICD-10-PCS; 2019-11-24)
PROC: 5A09357 Assistance with Respiratory Ventilation, Less than 24 Consecutive Hours, Continuous Positive Airway Pressure (ICD-10-PCS; 2019-11-25)
PROC: 5A09357 Assistance with Respiratory Ventilation, Less than 24 Consecutive Hours, Continuous Positive Airway Pressure (ICD-10-PCS; 2019-11-26)
PROC: 5A09357 Assistance with Respiratory Ventilation, Less than 24 Consecutive Hours, Continuous Positive Airway Pressure (ICD-10-PCS; 2019-11-27)
PROC: 5A09357 Assistance with Respiratory Ventilation, Less than 24 Consecutive Hours, Continuous Positive Airway Pressure (ICD-10-PCS; 2019-11-28)
DX: U07.1 COVID-19 (principal); J96.01 Acute respiratory failure with hypoxia; J12.89 Other viral pneumonia; E87.1 Hypo-osmolality and hyponatremia; E44.0 Moderate protein-calorie malnutrition; D68.59 Other primary thrombophilia; E87.3 Alkalosis; Z68.43 Body mass index [BMI] 50.0-59.9, adult; R73.9 Hyperglycemia, unspecified; D72.829 Elevated white blood cell count, unspecified; E83.41 Hypermagnesemia; E66.01 Morbid (severe) obesity due to excess calories; I49.8 Other specified cardiac arrhythmias; G47.33 Obstructive sleep apnea (adult) (pediatric); Z83.3 Family history of diabetes mellitus; Z83.6 Family history of other diseases of the respiratory system; Z82.49 Family history of ischemic heart disease and other diseases of the circulatory system

== ENCOUNTER → 2019-12-07 | Outpatient (CLI) | payer BC ==
[~2019-12-07] MED LIST changes: +ENOXAPARIN150 MG/1 M SC; +PROPRANOLOL ER80 MG PO
[2019-12-07 15:22] LABS: BASO % 0.4 % (0.0-1.0); EOS # 0.1 10*3/uL (0.0-0.4); EOS % 0.7 % (1.0-4.0); HEMATOCRIT 36.4 % (37.0-47.0); LYMPH # 1.8 10*3/uL (1.3-4.4); LYMPH % 23.3 % (27.0-41.0); MEAN CELL VOLUME 84.5 fl (81.0-99.0); MEAN CORPUSCULAR HGB 27.1 pg (27.0-31.0); MEAN CORPUSCULAR HGB CONC 32.1 g/dl (33.0-37.0); MEAN PLATELET VOLUME 10.7 fl (9.6-12.3); MONO # 0.8 10*3/uL (0.1-1.0); NEUT # 4.9 10*3/uL (2.3-7.9); NEUT % 65.3 % (47.0-73.0); PLATELET COUNT AUTOMATED 201 10*3/uL (130-400); RED BLOOD COUNT 4.31 10*6/uL (4.10-5.10); WHITE BLOOD COUNT 7.5 10*3/uL (4.8-10.8)
[2019-12-07 15:36] LABS: ALBUMIN 2.9 gm/dl (3.1-4.5); ALKALINE PHOSPHATASE 74 U/L (45-117); BUN 6 mg/dl (7-24); CHLORIDE 112 mmol/L (98-107); CREATININE 0.99 mg/dL (0.55-1.02); POTASSIUM 3.7 mmol/L (3.5-5.1); SGOT/AST 28 IU/L (3-35); SGPT/ALT 60 U/L (12-78); SODIUM 142 mmol/L (136-145)
== END | disposition home or self-care (01) ==
LOC: LAB 14:43
PROVIDERS: Internal Medicine Critical Care Medicine
DX: U07.1 COVID-19 (principal)

== ENCOUNTER → 2019-12-14 | Outpatient (CLI) | payer BC ==
[2019-12-14 13:22] LABS: BASO % 0.6 % (0.0-1.0); EOS # 0.1 10*3/uL (0.0-0.4); EOS % 2.6 % (1.0-4.0); HEMATOCRIT 40.4 % (37.0-47.0); LYMPH # 2.2 10*3/uL (1.3-4.4); LYMPH % 40.4 % (27.0-41.0); MEAN CELL VOLUME 86.1 fl (81.0-99.0); MEAN CORPUSCULAR HGB 27.1 pg (27.0-31.0); MEAN CORPUSCULAR HGB CONC 31.4 g/dl (33.0-37.0); MEAN PLATELET VOLUME 10.1 fl (9.6-12.3); MONO # 0.4 10*3/uL (0.1-1.0); NEUT # 2.7 10*3/uL (2.3-7.9); NEUT % 49.2 % (47.0-73.0); PLATELET COUNT AUTOMATED 299 10*3/uL (130-400); RED BLOOD COUNT 4.69 10*6/uL (4.10-5.10); RED CELL DISTRI WIDTH 15.9 % (0-14.5); WHITE BLOOD COUNT 5.4 10*3/uL (4.8-10.8)
[2019-12-14 13:38] LABS: ALBUMIN 3.3 gm/dl (3.1-4.5); BUN 5 mg/dl (7-24); CHLORIDE 109 mmol/L (98-107); POTASSIUM 4.4 mmol/L (3.5-5.1); SGOT/AST 30 IU/L (3-35); SGPT/ALT 49 U/L (12-78); SODIUM 139 mmol/L (136-145); TOTAL PROTEIN 7.6 gm/dL (6.4-8.2)
[2019-12-14 13:39] LABS: ALKALINE PHOSPHATASE 84 U/L (45-117); CREATININE 0.88 mg/dL (0.55-1.02)
== END | disposition home or self-care (01) ==
LOC: LAB 12:57
PROVIDERS: Internal Medicine Critical Care Medicine
DX: U07.1 COVID-19 (principal)

== ENCOUNTER → 2019-12-15 | Outpatient (CLI) | payer BC | END | disposition home or self-care (01) | LOC: COVID19 12:14 | DX: U07.1 COVID-19 (principal) ==

== ENCOUNTER 2021-05-19 01:39 | Emergency (ER) | payer OTHER | END 2021-05-19 01:55 | disposition left against medical advice (07) | LOC: ED 01:39 | DX: Z53.21 Procedure and treatment not carried out due to patient leaving prior to being seen by health care provider (principal) ==

== ENCOUNTER → 2021-11-05 | Outpatient (CLI) | payer OTHER ==
[2021-11-05 07:58] LABS: BASO % 0.2 % (0.0-1.0); EOS # 0.1 10*3/uL (0.0-0.4); EOS % 0.7 % (1.0-4.0); HEMATOCRIT 38.6 % (37.0-47.0); LYMPH # 2.1 10*3/uL (1.3-4.4); LYMPH % 24.8 % (27.0-41.0); MEAN CELL VOLUME 83.2 fl (81.0-99.0); MEAN CORPUSCULAR HGB 26.1 pg (27.0-31.0); MEAN CORPUSCULAR HGB CONC 31.3 g/dl (33.0-37.0); MONO # 0.3 10*3/uL (0.1-1.0); NEUT # 5.9 10*3/uL (2.3-7.9); NEUT % 70.1 % (47.0-73.0); PLATELET COUNT AUTOMATED 319 10*3/uL (130-400); RED BLOOD COUNT 4.64 10*6/uL (4.10-5.10); RED CELL DISTRI WIDTH 15.3 % (0-14.5); WHITE BLOOD COUNT 8.4 10*3/uL (4.8-10.8)
[2021-11-05 08:22] LABS: THYROID STIM HORMONE (HS) 1.94 uIU/ml (0.358-4.75)
[2021-11-06 05:06] LABS: DHEA SULFATE 41.6 ug/dL (84.8-378.0); FOLLICLE STIMULATING HORMONE 0.6 mIU/mL (.); LUTEINIZING HORMONE 0.8 mIU/mL (.); PROLACTIN 22.5 ng/mL (4.8-23.3)
[2021-11-08 17:06] LABS: TESTOSTERONE FREE, (DIRECT) 2.8 pg/mL (0.0-4.2)
== END | disposition home or self-care (01) ==
LOC: LAB 07:06 → US 07:30
PROVIDERS: ATTEND Nurse Practitioner Women's Health
DX: R93.89 Abnormal findings on diagnostic imaging of other specified body structures (principal); N93.9 Abnormal uterine and vaginal bleeding, unspecified; R53.83 Other fatigue